=== PATIENT | female | born 1940 ===

== ENCOUNTER 2018-04-25 14:47 | Emergency (ER) | payer MEDICARE, MEDICAID ==
[2018-04-25 14:48] VITALS: BMI 25.2
--- NOTE | 2018-04-25 16:22 | C.PDOC ---
History Of Present Illness Patient is a 77 year old female who presents to the ED c/o right shoulder pain after she fell 2 days ago in [place]. Patient states that an xray she had taken there showed fractured humeral head and has come here to continue her evaluation. She denies any CP, SOB, LOC, or other injury. - HPI Time Seen by Provider: 04/25/18 15:43 Chief Complaint (Nursing): Trauma History Per: Patient History/Exam Limitations: no limitations Onset/Duration Of Symptoms: Days (2) Location Of Injury: Right: Shoulder Recent travel outside of the [place]: No Additional History Per: Patient Past Medical History Reviewed: Historical Data, Nursing Documentation, Vital Signs Vital Signs: Last Vital Signs Temp 97.2 F L 04/25/18 14:59 Pulse 86 04/25/18 14:59 Resp 16 04/25/18 14:59 BP 193/58 H 04/25/18 14:59 Pulse Ox 100 04/25/18 14:59 - Medical History PMH: Diabetes, HTN Surgical History: No Surg Hx - [facility] Procedures CATARAC PHACOEMULS/ASPIR (12/07/12) CLOSED [NEEDLE] BIOPSY OF TONGUE (01/10/13) INSERT LENS AT CATAR EXT (12/07/12) Family History: States: No Known Family Hx - Social History Hx Tobacco Use: No Hx Alcohol Use: No Hx Substance Use: No - Immunization History Hx Tetanus Toxoid Vaccination: No Hx Influenza Vaccination: No Hx Pneumococcal Vaccination: No Review Of Systems Cardiovascular: Negative for: Chest Pain Respiratory: Negative for: Shortness of Breath Musculoskeletal: Positive for: Shoulder Pain (right ) Neurological: Negative for: Other (LOC) Physical Exam - Physical Exam Appears: Non-toxic, No Acute Distress Skin: Warm, Dry, Ecchymosis (extensive ecchymosis of right upper arm ) Head: Atraumatic, Normacephalic Oral Mucosa: Moist Neck: Normal ROM, Supple Chest: Symmetrical, No Deformity Cardiovascular: Rhythm Regular, No Murmur Respiratory: Normal Breath Sounds, No Rales, No Rhonchi, No Wheezing Gastrointestinal/Abdominal: Soft Extremity: Normal ROM, Tenderness (minor pain and tenderness of right shoulder, normal neurovascular of right hand ) Neurological/Psych: Oriented x3, Normal Speech, Normal Cognition ED Course And Treatment O2 Sat by Pulse Oximetry: 100 (on RA) Pulse Ox Interpretation: Normal - Other Rad R shoulder X-Ray: Interpreted by Me (+ cominuted humoral head fx) Reevaluation Time: 16:39 Reassessment Condition: Improved Medical Decision Making Medical Decision Making: Plan: Ultram 50mg PO Xray Rt Shoulder comminuted R humoral head head fx from 2 days ago normal R arm NV opt f/u. Disposition Doctor Will See Patient In The: Office Counseled Patient/Family Regarding: Studies Performed, Diagnosis - Disposition Referrals: Newton Clinton III, MD [Staff Provider] - Disposition: HOME/ ROUTINE Disposition Time: 16:41 Condition: GOOD Additional Instructions: ice packs 1/2 hour per hour, nothing hot motrin/advil 400-600 mg every 6 hours as needed Continue Tramadol (already rx'd) as needed keep R arm sling in place while awake Call to make follow-up with Dr. Clinton- Orthopedic Surgeon [place] [facility] Instructions: Upper Arm Fracture Forms: [facility] (Uzbek) - Clinical Impression Clinical Impression: Humeral head fracture - Scribe Statement The provider has reviewed the documentation as recorded by the Bryanibroby Marlow All medical record entries made by the Scribe were at my direction and personally dictated by me. I have reviewed the chart and agree that the record accurately reflects my personal performance of the history, physical exam, medical decision making, and the department course for this patient. I have also personally directed, reviewed, and agree with the discharge instructions and disposition.
--- NOTE | 2018-04-25 16:38 | RAD ---
Date of service: 04/25/2018 PROCEDURE: Radiographs of the Right Shoulder HISTORY: previous fall COMPARISON: No prior. FINDINGS: BONES: There is an acute comminuted impacted fracture in the neck of the humerus. Bone alignment is normal. There is diffuse bone demineralization. JOINTS: Glenohumeral and acromioclavicular joints preserved. Mild degenerative osteoarthritis. SOFT TISSUES: Normal. OTHER FINDINGS: None. IMPRESSION: Acute comminuted impacted fracture in the neck of the humerus without evidence for dislocation.
[2018-04-25 16:57] VITALS: TEMP 98.4
[2018-04-25 17:09] VITALS: BP 166/92; PULSE 87; RESP 20; O2SAT 99
== END 2018-04-25 17:13 | disposition home or self-care (01) ==
LOC: C.ER 14:47
DX: S42.291G Other displaced fracture of upper end of right humerus, subsequent encounter for fracture with delayed healing (principal); W19.XXXD Unspecified fall, subsequent encounter